=== PATIENT | female | born 1955 | race African-American/Black ===

== ENCOUNTER 2019-01-16 06:27 | Inpatient (IN) | payer BC ==
[~2019-01-16] VITALS: Ht 167.6 cm; Wt 114.5 kg
[2019-01-16] MEDS ORDERED: METHYLPREDNISOLONE SOD SUCC 125 MG/2 ML VIAL IV STA (06:39)
[2019-01-16] MEDS ORDERED: IPRATROPIUM/ALBUTEROL 0.5-3(2.5)MG/3ML NEB HHN ONE (06:45)
[2019-01-16] MEDS ORDERED: LEVOFLOXACIN 750MG PREMIX 150 ML IV ONE (06:45)
[2019-01-16] MEDS ORDERED: MAGNESIUM 2 G PREMIX 50 ML IV ONE (06:45)
[2019-01-16 07:06] LABS: BASOPHILS % 0.6 % (0.0-2.0); EOSINOPHILS % 6.6 % (0.0-5.0); HEMATOCRIT. 43.1 % (36.0-48.0); HEMOGLOBIN. 14.4 g/dL (12.0-16.0); LYMPHOCYTES % 27.9 % (20.0-50.0); MEAN CORPUSCULAR HEMOGLOBIN 30.3 pg (28.0-32.0); MEAN CORPUSCULAR VOLUME 90.4 fL (81.0-99.0); MEAN PLATELET VOLUME 7.9 fl (7.4-10.4); MONOCYTES % 10.1 % (2.0-8.0); NEUTROPHILS % 54.8 % (40.0-76.0); PLATELET 241 x1000/uL (130-400); RED BLOOD CELL COUNT 4.77 mill/uL (4.2-5.4); RED CELL DISTRIBUTION WIDTH 13.3 % (11.6-14.6)
[2019-01-16 07:15] LABS: CHLORIDE 112 mEq/L (98-107)
[2019-01-16 07:19] LABS: ETHANOL BLOOD < 10 mg/dL
[2019-01-16 07:22] LABS: D-DIMER 0.75 mg/L FEU (<0.50); PARTIAL THROMBOPLASTIN TIME 28.5 sec (23.4-31.0); PROTHROMBIN TIME 10.5 sec (9.1-11.1)
[2019-01-16 08:25] LABS: BG BASE EXCESS -3.9 mmol/L (-2.0-2.0); BG BILEVEL POS AIRWAY PRESSURE 15/5; BG DEOXYHEMOGLOBIN 0.5 % (0.0-5.0); BG HCO3 ACT 21.6 mmol/L (22.0-26.0); BG METHEMOGLOBIN 0.6 % (0.0-1.5); BG OXYGEN SATURATION 99.5 % (92.0-98.5); BG OXYHEMOGLOBIN 97.9 % (94.0-97.0); BG PCO2 40.7 mmHg (35.0-45.0); BG PH 7.342 (7.350-7.450); BG PO2 255.1 mmHg (75.0-100.0); BG SAMPLE SITE RIGHT RADIAL; BG TOTAL HEMOGLOBIN 14.8 g/dL (12.0-18.0); BG VENT MODE MASK - BIPAP; BG VENT RATE 16 set
[2019-01-16] MEDS ORDERED: LEVOFLOXACIN 500MG PREMIX 100 ML IV SCH (11:30)
[2019-01-16] MEDS ORDERED: MAGNESIUM/ALUMINUM HYDROXIDE/SIMETHICONE 30ML UDC PO PRN (11:30)
[2019-01-16] MEDS ORDERED: DOCUSATE SODIUM 100MG CAPSULE PO PRN (11:30)
[2019-01-16] MEDS ORDERED: ACETAMINOPHEN 325MG TABLET PO PRN (11:30)
[2019-01-16] MEDS ORDERED: IPRATROPIUM/ALBUTEROL 0.5-3(2.5)MG/3ML NEB INH PRN (11:30)
[2019-01-16] MEDS ORDERED: BUDESONIDE 0.5MG/2ML NEB HHN SCH (11:30)
[2019-01-16] MEDS ORDERED: METHYLPREDNISOLONE SOD SUCC 125 MG/2 ML VIAL IV SCH (11:30)
[2019-01-16 16:25] LABS: BG BASE EXCESS -1.8 mmol/L (-2.0-2.0); BG CARBOXYHEMOGLOBIN 0.9 % (0.5-1.5); BG DEOXYHEMOGLOBIN 5.4 % (0.0-5.0); BG HCO3 ACT 22.7 mmol/L (22.0-26.0); BG METHEMOGLOBIN 0.3 % (0.0-1.5); BG OXYGEN SATURATION 94.5 % (92.0-98.5); BG OXYHEMOGLOBIN 93.4 % (94.0-97.0); BG PH 7.394 (7.350-7.450); BG PO2 70.9 mmHg (75.0-100.0); BG SAMPLE SITE RIGHT RADIAL; BG TOTAL HEMOGLOBIN 15.3 g/dL (12.0-18.0); BG VENT MODE ROOM AIR
[2019-01-16 21:00] VITALS: BP 116/58
[2019-01-16] MEDS ORDERED: ALBUTEROL (0.083%) 2.5MG/3ML NEB HHN PRN (21:15)
[2019-01-16] MEDS: IPRATROPIUM/ALBUTEROL 0.5-3(2.5)MG/3ML NEB INH SCH ×2 (21:38→23:48)
[2019-01-16] MEDS: BUDESONIDE 0.5MG/2ML NEB HHN SCH (21:46)
[2019-01-16 22:00] VITALS: BP 116/58
[2019-01-16] MEDS ORDERED: LEVO125T PO (22:00)
[2019-01-16] MEDS ORDERED: SOTA80TA PO (22:00)
[2019-01-16] MEDS ORDERED: TEMA30CA PO (22:00)
[2019-01-16] MEDS: GUAIFENESIN 600MG ER TABLET PO SCH (22:32)
[2019-01-16] MEDS: METHYLPREDNISOLONE SOD SUCC 40 MG/ML VIAL IV SCH (22:32)
[2019-01-17] VITALS (12 sets, daily range): BP systolic 106–158; BP diastolic 60–92
[2019-01-17] MEDS: IPRATROPIUM/ALBUTEROL 0.5-3(2.5)MG/3ML NEB INH SCH ×5 (04:45→21:22)
[2019-01-17 05:52] LABS: BASOPHILS % 0.2 % (0.0-2.0); EOSINOPHILS % 0.1 % (0.0-5.0); HEMATOCRIT. 41.7 % (36.0-48.0); HEMOGLOBIN. 13.9 g/dL (12.0-16.0); LYMPHOCYTES % 10.6 % (20.0-50.0); MEAN CORPUSCULAR HEMOGLOBIN 30.3 pg (28.0-32.0); MEAN CORPUSCULAR VOLUME 90.7 fL (81.0-99.0); MEAN PLATELET VOLUME 8.3 fl (7.4-10.4); MONOCYTES % 2.3 % (2.0-8.0); NEUTROPHILS % 86.8 % (40.0-76.0); PLATELET 237 x1000/uL (130-400); RED CELL DISTRIBUTION WIDTH 13.5 % (11.6-14.6)
[2019-01-17] MEDS: METHYLPREDNISOLONE SOD SUCC 40 MG/ML VIAL IV SCH (06:32)
[2019-01-17 06:53] LABS: CHLORIDE 111 mEq/L (98-107)
[2019-01-17 07:17] LABS: LDL CHOLESTEROL 109 mg/dL (5-100)
[2019-01-17 07:18] LABS: HDL CHOLESTEROL 57 mg/dL (40-59); T4 FREE 1.24 ng/dL (0.76-1.46)
[2019-01-17] MEDS: OMEPRAZOLE 20MG CAPSULE EXTENDED RELEASE PO SCH (07:30)
[2019-01-17] MEDS: BUDESONIDE 0.5MG/2ML NEB HHN SCH ×2 (07:49→21:21)
[2019-01-17 09:23] LABS: BG BASE EXCESS -0.6 mmol/L (-2.0-2.0); BG CARBOXYHEMOGLOBIN 1.1 % (0.5-1.5); BG DEOXYHEMOGLOBIN 8.9 % (0.0-5.0); BG FRACTION INSPIRED OXYGEN 21; BG METHEMOGLOBIN 0.4 % (0.0-1.5); BG OXYHEMOGLOBIN 89.6 % (94.0-97.0); BG PH 7.435 (7.350-7.450); BG PO2 57.1 mmHg (75.0-100.0); BG SAMPLE SITE RIGHT RADIAL; BG TOTAL HEMOGLOBIN 14.8 g/dL (12.0-18.0); BG VENT MODE ROOM AIR
[2019-01-17] MEDS ORDERED: LIDOCAINE HCL/PF 1% 2ML VIAL ONE (10:06)
[2019-01-17] MEDS: GUAIFENESIN 200MG/10ML SUGAR FREE UDC PO PRN ×2 (10:12→15:44)
[2019-01-17] MEDS: GUAIFENESIN 600MG ER TABLET PO SCH ×2 (10:14→20:30)
[2019-01-17] MEDS: LEVOFLOXACIN 500MG PREMIX 100 ML IV SCH (10:21)
[2019-01-17] MEDS ORDERED: LEVOTHYROXINE SODIUM 125MCG TABLET PO SCH ×2 (11:15→13:00)
[2019-01-17] MEDS ORDERED: SOTALOL HCL 80MG TABLET PO SCH (11:15)
[2019-01-17] MEDS: IBUPROFEN 800MG TABLET PO PRN (11:53)
[2019-01-17] MEDS: LEVOTHYROXINE SODIUM 125MCG TABLET PO SCH (15:56)
[2019-01-17] MEDS: SOTALOL HCL 80MG TABLET PO SCH (20:30)
[2019-01-17] MEDS ORDERED: METHYLPREDNISOLONE SOD SUCC 40 MG/ML VIAL IV SCH (21:00)
[2019-01-18] VITALS (8 sets, daily range): BP systolic 127–144; BP diastolic 73–95
[2019-01-18] MEDS: IBUPROFEN 800MG TABLET PO PRN (00:13)
[2019-01-18] MEDS: IPRATROPIUM/ALBUTEROL 0.5-3(2.5)MG/3ML NEB INH SCH ×4 (00:20→11:37)
[2019-01-18] MEDS: BUDESONIDE 0.5MG/2ML NEB HHN SCH (08:41)
[2019-01-18] MEDS ORDERED: PREDNISONE 20MG TABLET PO SCH (09:00)
[2019-01-18] MEDS: GUAIFENESIN 200MG/10ML SUGAR FREE UDC PO PRN (09:29)
[2019-01-18] MEDS: LEVOTHYROXINE SODIUM 125MCG TABLET PO SCH (09:30)
[2019-01-18] MEDS: SOTALOL HCL 80MG TABLET PO SCH (09:30)
[2019-01-18] MEDS: GUAIFENESIN 600MG ER TABLET PO SCH (09:31)
[2019-01-18] MEDS: OMEPRAZOLE 20MG CAPSULE EXTENDED RELEASE PO SCH (09:31)
[2019-01-18] MEDS: LEVOFLOXACIN 500MG PREMIX 100 ML IV SCH (09:32)
[2019-01-18 09:53] LABS: BG BASE EXCESS 0.1 mmol/L (-2.0-2.0); BG CARBOXYHEMOGLOBIN 0.7 % (0.5-1.5); BG DEOXYHEMOGLOBIN 7.2 % (0.0-5.0); BG FRACTION INSPIRED OXYGEN 21; BG HCO3 ACT 23.7 mmol/L (22.0-26.0); BG METHEMOGLOBIN 0.2 % (0.0-1.5); BG OXYGEN SATURATION 92.7 % (92.0-98.5); BG OXYHEMOGLOBIN 91.9 % (94.0-97.0); BG PCO2 35.4 mmHg (35.0-45.0); BG PH 7.443 (7.350-7.450); BG PO2 64.7 mmHg (75.0-100.0); BG SAMPLE SITE RIGHT RADIAL; BG TOTAL HEMOGLOBIN 14.6 g/dL (12.0-18.0); BG VENT MODE ROOM AIR
[2019-01-18] MEDS ORDERED: LIDOCAINE HCL/PF 1% 2ML VIAL ONE (13:43)
[2019-01-22] MEDS ORDERED: PREDNISONE 20MG TABLET PO SCH (09:00)
[2019-01-26] MEDS ORDERED: PREDNISONE 20MG TABLET PO SCH (09:00)
[2019-01-30] MEDS ORDERED: PREDNISONE 10MG TABLET PO SCH (09:00)
== END 2019-01-18 13:15 | disposition home or self-care (01) | DRG 189 ==
LOC: ER 06:50 → 5EST 08:51 → EDBEDREQSVC 08:54 → EDBEDREQ 08:54 → ENRESERV 20:14
PROVIDERS: ADMIT Internal Medicine; ATTEND Internal Medicine
PROC: 5A09357 Assistance with Respiratory Ventilation, Less than 24 Consecutive Hours, Continuous Positive Airway Pressure (ICD-10-PCS; principal; 2019-01-16)
DX: J96.00 Acute respiratory failure, unspecified whether with hypoxia or hypercapnia (principal); J44.1 Chronic obstructive pulmonary disease with (acute) exacerbation; Z68.41 Body mass index [BMI] 40.0-44.9, adult; J44.0 Chronic obstructive pulmonary disease with (acute) lower respiratory infection; E66.01 Morbid (severe) obesity due to excess calories; J20.9 Acute bronchitis, unspecified; E03.9 Hypothyroidism, unspecified; I48.91 Unspecified atrial fibrillation; I65.21 Occlusion and stenosis of right carotid artery; F17.200 Nicotine dependence, unspecified, uncomplicated; Z88.5 Allergy status to narcotic agent; Z88.2 Allergy status to sulfonamides; Z86.73 Personal history of transient ischemic attack (TIA), and cerebral infarction without residual deficits; Z79.82 Long term (current) use of aspirin; Z71.6 Tobacco abuse counseling; Z71.3 Dietary counseling and surveillance; Z79.890 Hormone replacement therapy
CPT/HCPCS: 36415; 36600; 71045; 80061; 82375; 82805; 83605; 83880; 84439; 84443; 84481; 84484; 85379; 93005; 93880; 93970; 94640; 96365; 96366; 96368; 96375; 99291; J1956; J2920; J2930; J3475; J3490; J7050; J7512; J7620; J7626

== ENCOUNTER 2019-03-28 07:06 | Inpatient (IN) | payer BC ==
[~2019-03-28] VITALS: Ht 177.8 cm; Wt 107.8 kg
[~2019-03-28 07:06] MED LIST: LEVO125T PO; SOTA80TA PO; TEMA30CA PO
[2019-03-28] MEDS ORDERED: METHYLPREDNISOLONE SOD SUCC 125 MG/2 ML VIAL IV STA (07:43)
[2019-03-28] MEDS ORDERED: IPRATROPIUM BROMIDE (0.02%) 0.5MG/2.5ML NEB HHN STA (07:43)
[2019-03-28] MEDS ORDERED: MAGNESIUM 2 G PREMIX 50 ML IV ONE (07:45)
[2019-03-28] MEDS: ALBUTEROL (0.083%) 2.5MG/3ML NEB HHN SCH ×3 (08:05→09:07)
[2019-03-28 08:13] LABS: BASOPHILS % 1.1 % (0.0-2.0); CHLORIDE 111 mEq/L (98-107); EOSINOPHILS % 10.8 % (0.0-5.0); HEMATOCRIT. 43.8 % (36.0-48.0); HEMOGLOBIN. 14.7 g/dL (12.0-16.0); LYMPHOCYTES % 32.8 % (20.0-50.0); MEAN CORPUSCULAR HEMOGLOBIN 29.8 pg (28.0-32.0); MEAN CORPUSCULAR VOLUME 88.7 fL (81.0-99.0); NEUTROPHILS % 45.3 % (40.0-76.0); PLATELET 231 x1000/uL (130-400); RED BLOOD CELL COUNT 4.94 mill/uL (4.2-5.4); RED CELL DISTRIBUTION WIDTH 13.5 % (11.6-14.6)
[2019-03-28] MEDS ORDERED: ALBUTEROL (0.5%) 2.5MG/0.5ML NEB HHN PRN (10:30)
[2019-03-28] MEDS ORDERED: LIDOCAINE HCL/PF 1% 2ML VIAL ONE (16:50)
[2019-03-28 17:22] LABS: BG BASE EXCESS -2.2 mmol/L (-2.0-2.0); BG CARBOXYHEMOGLOBIN 0.3 % (0.5-1.5); BG DEOXYHEMOGLOBIN 4.7 % (0.0-5.0); BG FRACTION INSPIRED OXYGEN 28; BG HCO3 ACT 21.4 mmol/L (22.0-26.0); BG METHEMOGLOBIN 0.5 % (0.0-1.5); BG OXYGEN SATURATION 95.3 % (92.0-98.5); BG OXYHEMOGLOBIN 94.5 % (94.0-97.0); BG PCO2 33.6 mmHg (35.0-45.0); BG PH 7.421 (7.350-7.450); BG PO2 73.2 mmHg (75.0-100.0); BG SAMPLE SITE RIGHT BRACHIAL; BG TOTAL HEMOGLOBIN 15.4 g/dL (12.0-18.0); BG VENT MODE NASAL CANNULA
[2019-03-28 21:35] VITALS: BP 137/75
[2019-03-28 22:19] VITALS: BP 137/75
[2019-03-28] MEDS ORDERED: CLONIDINE 0.1MG TABLET PO PRN (22:21)
[2019-03-28] MEDS: METHYLPREDNISOLONE SOD SUCC 40 MG/ML VIAL IV SCH (23:16)
[2019-03-29] VITALS (19 sets, daily range): BP systolic 113–155; BP diastolic 32–113
[2019-03-29] MEDS: ALBUTEROL (0.083%) 2.5MG/3ML NEB HHN SCH ×6 (00:39→20:42)
[2019-03-29] MEDS: METHYLPREDNISOLONE SOD SUCC 40 MG/ML VIAL IV SCH ×3 (06:33→21:10)
[2019-03-29 07:05] LABS: BASOPHILS % 0.6 % (0.0-2.0); HEMATOCRIT. 41.6 % (36.0-48.0); HEMOGLOBIN. 13.7 g/dL (12.0-16.0); LYMPHOCYTES % 11.7 % (20.0-50.0); MEAN CORPUSCULAR HEMOGLOBIN 29.8 pg (28.0-32.0); MEAN CORPUSCULAR VOLUME 90.7 fL (81.0-99.0); MEAN PLATELET VOLUME 8.1 fl (7.4-10.4); MONOCYTES % 1.5 % (2.0-8.0); NEUTROPHILS % 86.2 % (40.0-76.0); PLATELET 223 x1000/uL (130-400); RED BLOOD CELL COUNT 4.59 mill/uL (4.2-5.4); RED CELL DISTRIBUTION WIDTH 13.6 % (11.6-14.6)
[2019-03-29 07:23] LABS: CHLORIDE 111 mEq/L (98-107)
[2019-03-29 07:43] LABS: CREATINE KINASE 38 IU/L (26-192); HDL CHOLESTEROL 56 mg/dL (40-59)
[2019-03-29 07:45] LABS: LDL CHOLESTEROL 125 mg/dL (5-100)
[2019-03-29] MEDS: APIXABAN 2.5 MG TABLET PO SCH ×2 (09:05→17:06)
[2019-03-29] MEDS ORDERED: LEVOTHYROXINE SODIUM 125MCG TABLET PO SCH (10:15)
[2019-03-29] MEDS ORDERED: POTASSIUM CHLORIDE 20MEQ TABLET SR PO NR (10:30)
[2019-03-29 11:56] LABS: T4 FREE 1.15 ng/dL (0.76-1.46)
[2019-03-29] MEDS: DILTIAZEM HCL 30MG TABLET PO SCH ×2 (13:39→17:06)
[2019-03-29] MEDS: TEMAZEPAM 15MG CAPSULE PO PRN (21:11)
[2019-03-30] VITALS (29 sets, daily range): BP systolic 116–218; BP diastolic 34–182
[2019-03-30] MEDS: DILTIAZEM HCL 30MG TABLET PO SCH ×3 (00:16→13:18)
[2019-03-30] MEDS: ALBUTEROL (0.083%) 2.5MG/3ML NEB HHN SCH ×4 (00:21→11:47)
[2019-03-30] MEDS: METHYLPREDNISOLONE SOD SUCC 40 MG/ML VIAL IV SCH ×3 (05:53→21:42)
[2019-03-30 06:36] LABS: BASOPHILS % 0.1 % (0.0-2.0); HEMATOCRIT. 41.6 % (36.0-48.0); HEMOGLOBIN. 13.5 g/dL (12.0-16.0); LYMPHOCYTES % 8.8 % (20.0-50.0); MEAN CORPUSCULAR HEMOGLOBIN 29.4 pg (28.0-32.0); MEAN CORPUSCULAR VOLUME 90.1 fL (81.0-99.0); MEAN PLATELET VOLUME 8.2 fl (7.4-10.4); MONOCYTES % 4.4 % (2.0-8.0); NEUTROPHILS % 86.7 % (40.0-76.0); PLATELET 229 x1000/uL (130-400); RED BLOOD CELL COUNT 4.61 mill/uL (4.2-5.4); RED CELL DISTRIBUTION WIDTH 13.7 % (11.6-14.6)
[2019-03-30] MEDS ORDERED: LEVOTHYROXINE SODIUM 125MCG TABLET PO SCH (06:50)
[2019-03-30 07:40] LABS: CHLORIDE 111 mEq/L (98-107)
[2019-03-30] MEDS: APIXABAN 2.5 MG TABLET PO SCH (08:05)
[2019-03-30] MEDS ORDERED: DILTIAZEM HCL 5MG/ML 5ML VIAL IV NR (15:00)
[2019-03-30] MEDS ORDERED: DILTIAZEM HCL 5MG/ML 5ML VIAL IV PRN (15:00)
[2019-03-30] MEDS ORDERED: ALBUTEROL (0.083%) 2.5MG/3ML NEB HHN PRN (15:15)
[2019-03-30] MEDS: DILTIAZEM HCL 60MG TABLET PO SCH (17:04)
[2019-03-30] MEDS: APIXABAN 5 MG TABLET PO SCH (17:05)
[2019-03-30] MEDS ORDERED: LORAZEPAM 0.5MG TABLET PO PRN (18:45)
[2019-03-30] MEDS: DEXT 5%/0.45% NACL 1000ML 1,000 ML IV SCH (19:00)
[2019-03-30] MEDS ORDERED: THEOPHYLLINE ANHYDROUS 80 MG/15 ML 120ML PO SCH (21:00)
[2019-03-30] MEDS: INSULIN LISPRO 100 UNITS/ML SUBCUT SCH (21:00)
[2019-03-30] MEDS ORDERED: DEXTROSE 50% WATER 50ML SYRINGE IV PRN (21:00)
[2019-03-30] MEDS: BLOOD SUGAR DIAGNOSTIC STRIP TEST SCH (21:02)
[2019-03-31] VITALS: BP 134/73
[2019-03-31] MEDS: TEMAZEPAM 15MG CAPSULE PO PRN (00:05)
[2019-03-31] MEDS: DILTIAZEM HCL 60MG TABLET PO SCH ×2 (00:05→06:17)
[2019-03-31 02:00] VITALS: BP 149/81
[2019-03-31 04:00] VITALS: BP 136/56
[2019-03-31 06:00] VITALS: BP 129/75
[2019-03-31] MEDS: BLOOD SUGAR DIAGNOSTIC STRIP TEST SCH (06:08)
[2019-03-31] MEDS: METHYLPREDNISOLONE SOD SUCC 40 MG/ML VIAL IV SCH (06:12)
[2019-03-31 06:39] LABS: BASOPHILS % 0.1 % (0.0-2.0); HEMATOCRIT. 39.8 % (36.0-48.0); HEMOGLOBIN. 13.3 g/dL (12.0-16.0); LYMPHOCYTES % 7.8 % (20.0-50.0); MEAN CORPUSCULAR HEMOGLOBIN 29.9 pg (28.0-32.0); MEAN CORPUSCULAR VOLUME 89.6 fL (81.0-99.0); MEAN PLATELET VOLUME 8.2 fl (7.4-10.4); MONOCYTES % 3.2 % (2.0-8.0); NEUTROPHILS % 88.9 % (40.0-76.0); PLATELET 235 x1000/uL (130-400); RED BLOOD CELL COUNT 4.45 mill/uL (4.2-5.4)
[2019-03-31 06:40] LABS: CHLORIDE 109 mEq/L (98-107)
[2019-03-31] MEDS ORDERED: LEVOTHYROXINE SODIUM 100MCG TABLET PO SCH (06:50)
[2019-03-31] MEDS: INSULIN LISPRO 100 UNITS/ML SUBCUT SCH (07:20)
[2019-03-31] MEDS: DEXT 5%/0.45% NACL 1000ML 1,000 ML IV SCH (08:20)
[2019-03-31] MEDS: APIXABAN 5 MG TABLET PO SCH (09:04)
[2019-03-31 09:45] VITALS: BP 121/51
== END 2019-03-31 10:15 | disposition home or self-care (01) | DRG 189 ==
LOC: ER 07:54 → 3WST 10:22 → ENRESERV 20:36 → 3WST 23:25
PROVIDERS: ADMIT Specialist; ATTEND Specialist
PROC: 5A09357 Assistance with Respiratory Ventilation, Less than 24 Consecutive Hours, Continuous Positive Airway Pressure (ICD-10-PCS; principal; 2019-03-28)
DX: J96.00 Acute respiratory failure, unspecified whether with hypoxia or hypercapnia (principal); J44.1 Chronic obstructive pulmonary disease with (acute) exacerbation; D68.59 Other primary thrombophilia; I48.0 Paroxysmal atrial fibrillation; E03.9 Hypothyroidism, unspecified; E66.9 Obesity, unspecified; G47.00 Insomnia, unspecified; I10 Essential (primary) hypertension; F41.9 Anxiety disorder, unspecified; I27.20 Pulmonary hypertension, unspecified; R51 Headache; J45.40 Moderate persistent asthma, uncomplicated; Z79.01 Long term (current) use of anticoagulants; Z79.890 Hormone replacement therapy; Z87.891 Personal history of nicotine dependence; Z79.899 Other long term (current) drug therapy; Z88.2 Allergy status to sulfonamides; Z88.5 Allergy status to narcotic agent
CPT/HCPCS: 36415; 36600; 71045; 80048; 80061; 82375; 82550; 82805; 82962; 83735; 83880; 84439; 84443; 84481; 84484; 85379; 93005; 93306; 93970; 94640; 94660; 96365; 96366; 96375; 99291; J2920; J2930; J3475; J3490; J7611

== ENCOUNTER 2019-05-19 21:54 | Emergency (ER) | payer BC ==
[~2019-05-19] VITALS: Ht 175.3 cm; Wt 115.0 kg
[~2019-05-19 21:54] MED LIST changes: -SOTA80TA PO
[2019-05-19 22:03] VITALS: BP 151/107
== END 2019-05-19 22:40 | disposition left against medical advice (07) ==
LOC: ER 21:54
DX: Z53.21 Procedure and treatment not carried out due to patient leaving prior to being seen by health care provider (principal); E03.9 Hypothyroidism, unspecified; I48.91 Unspecified atrial fibrillation; Z88.5 Allergy status to narcotic agent; Z88.6 Allergy status to analgesic agent; Z98.890 Other specified postprocedural states

== ENCOUNTER 2019-07-09 19:02 | Inpatient (IN) | payer BC ==
[~2019-07-09] VITALS: Ht 170.2 cm; Wt 126.6 kg
[2019-07-09] MEDS ORDERED: METHYLPREDNISOLONE SOD SUCC 125 MG/2 ML VIAL IV STA (19:08)
[2019-07-09] MEDS ORDERED: ALBUTEROL (0.083%) 2.5MG/3ML NEB HHN STA ×2 (19:08→22:15)
[2019-07-09] MEDS ORDERED: IPRATROPIUM BROMIDE (0.02%) 0.5MG/2.5ML NEB HHN STA (19:08)
[2019-07-09] MEDS ORDERED: METHYLPREDNISOLONE SOD SUCC 125 MG/2 ML VIAL ONE (19:10)
[2019-07-09] MEDS ORDERED: MAGNESIUM 2 G PREMIX 50 ML IV ONE ×2 (19:12→19:15)
[2019-07-09 19:23] LABS: BASOPHILS % 2.1 % (0.0-2.0); EOSINOPHILS % 3.6 % (0.0-5.0); HEMATOCRIT. 44.5 % (36.0-48.0); HEMOGLOBIN. 15.1 g/dL (12.0-16.0); MEAN CORPUSCULAR VOLUME 88.5 fL (81.0-99.0); MEAN PLATELET VOLUME 7.8 fl (7.4-10.4); MONOCYTES % 12.4 % (2.0-8.0); NEUTROPHILS % 45.9 % (40.0-76.0); PLATELET 264 x1000/uL (130-400); RED BLOOD CELL COUNT 5.03 mill/uL (4.2-5.4); RED CELL DISTRIBUTION WIDTH 13.4 % (11.6-14.6)
[2019-07-09 19:30] LABS: CHLORIDE 110 mEq/L (98-107)
[2019-07-09] MEDS ORDERED: CEFTRIAXONE 1 G PREMIX 50 ML IV ONE (20:45)
[2019-07-09] MEDS: VANCOMYCIN 1 G PREMIX 200 ML IV SCH ×3 (20:45→22:54)
[2019-07-09] MEDS ORDERED: AZITHROMYCIN 500 MG in DEXT 5% WATER 250 ML IV SCH (20:45)
[2019-07-09] MEDS ORDERED: LIDOCAINE HCL 1% 20ML VIAL (Pyxis) INJ INFIL ONE (21:00)
[2019-07-09 21:37] LABS: BG BASE EXCESS -3.9 mmol/L (-2.0-2.0); BG BILEVEL POS AIRWAY PRESSURE 16/5; BG CARBOXYHEMOGLOBIN 0.2 % (0.5-1.5); BG DEOXYHEMOGLOBIN 0.6 % (0.0-5.0); BG FRACTION INSPIRED OXYGEN 50; BG HCO3 ACT 17.7 mmol/L (22.0-26.0); BG METHEMOGLOBIN 0.4 % (0.0-1.5); BG OXYGEN SATURATION 99.4 % (92.0-98.5); BG OXYHEMOGLOBIN 98.8 % (94.0-97.0); BG PCO2 24.9 mmHg (35.0-45.0); BG PO2 271.2 mmHg (75.0-100.0); BG SAMPLE SITE RIGHT RADIAL; BG TOTAL HEMOGLOBIN 15.3 g/dL (12.0-18.0); BG VENT MODE MASK - BIPAP; BG VENT RATE 18 set
[2019-07-09] MEDS ORDERED: IBUP1CAP3 PO (23:54)
[2019-07-09] MEDS ORDERED: APIX5TAB PO (23:54)
[2019-07-09] MEDS ORDERED: DILT60TA35 PO (23:54)
[2019-07-09] MEDS ORDERED: NITR0.4T49 SL (23:54)
[2019-07-09] MEDS ORDERED: TEMA30CA5 PO (23:54)
[2019-07-10] VITALS (9 sets, daily range): BP systolic 111–142; BP diastolic 65–89
[2019-07-10] MEDS ORDERED: TEMAZEPAM 30 MG PO SCH (00:15)
[2019-07-10] MEDS ORDERED: MEDICATION NOT ON FORMULARY EA (Diltiazem HCl (Cardizem) 60 MG) PO SCH (00:15)
[2019-07-10] MEDS ORDERED: TEMAZEPAM 15MG CAPSULE PO SCH ×2 (01:00→02:00)
[2019-07-10] MEDS: PIPERACILLIN/TAZOBACTAM 3.375 G in DEXT 5% WATER 100 ML IV SCH ×4 (02:44→20:37)
[2019-07-10] MEDS: VANCOMYCIN 1 G PREMIX 200 ML IV SCH ×2 (03:29→15:16)
[2019-07-10] MEDS ORDERED: ALBUTEROL (0.083%) 2.5MG/3ML NEB ONE (03:37)
[2019-07-10] MEDS: ALBUTEROL (0.083%) 2.5MG/3ML NEB HHN SCH ×2 (03:40→09:32)
[2019-07-10] MEDS: LEVOTHYROXINE SODIUM 125MCG TABLET PO SCH (06:12)
[2019-07-10] MEDS: DILTIAZEM HCL 60MG TABLET PO SCH ×3 (06:12→20:37)
[2019-07-10 07:24] LABS: BASOPHILS % 0.2 % (0.0-2.0); EOSINOPHILS % 0.4 % (0.0-5.0); HEMATOCRIT. 41.4 % (36.0-48.0); HEMOGLOBIN. 14.1 g/dL (12.0-16.0); LYMPHOCYTES % 9.3 % (20.0-50.0); MEAN CORPUSCULAR HEMOGLOBIN 30.5 pg (28.0-32.0); MEAN CORPUSCULAR VOLUME 89.5 fL (81.0-99.0); MEAN PLATELET VOLUME 7.9 fl (7.4-10.4); NEUTROPHILS % 89.1 % (40.0-76.0); PLATELET 245 x1000/uL (130-400); RED BLOOD CELL COUNT 4.62 mill/uL (4.2-5.4); RED CELL DISTRIBUTION WIDTH 13.5 % (11.6-14.6)
[2019-07-10 07:49] LABS: CHLORIDE 109 mEq/L (98-107)
[2019-07-10] MEDS: APIXABAN 5 MG TABLET PO SCH ×2 (08:26→20:37)
[2019-07-10] MEDS ORDERED: MEDICATION NOT ON FORMULARY EA (Apixaban (Eliquis) 5 MG) PO SCH (09:00)
[2019-07-10] MEDS ORDERED: ACETAMINOPHEN 650MG/20.3ML UDC GT PRN (10:00)
[2019-07-10] MEDS ORDERED: ACETAMINOPHEN 325MG TABLET PO PRN (10:00)
[2019-07-10] MEDS ORDERED: ONDANSETRON HCL 4MG/2ML INJ IV PRN (10:00)
[2019-07-10] MEDS ORDERED: IPRATROPIUM/ALBUTEROL 0.5-3(2.5)MG/3ML NEB INH PRN (10:00)
[2019-07-10] MEDS ORDERED: ACETAMINOPHEN 650MG SUPP PR PRN (10:00)
[2019-07-10] MEDS: METHYLPREDNISOLONE SOD SUCC 125 MG/2 ML VIAL IV SCH ×3 (11:09→20:47)
[2019-07-10 12:03] LABS: BG BASE EXCESS -2.6 mmol/L (-2.0-2.0); BG BILEVEL POS AIRWAY PRESSURE 16/5; BG CARBOXYHEMOGLOBIN 0.3 % (0.5-1.5); BG DEOXYHEMOGLOBIN 1.3 % (0.0-5.0); BG FRACTION INSPIRED OXYGEN 40; BG HCO3 ACT 15.5 mmol/L (22.0-26.0); BG METHEMOGLOBIN 0.2 % (0.0-1.5); BG OXYGEN SATURATION 98.7 % (92.0-98.5); BG OXYHEMOGLOBIN 98.2 % (94.0-97.0); BG PCO2 15.8 mmHg (35.0-45.0); BG PH 7.609 (7.350-7.450); BG SAMPLE SITE RIGHT RADIAL; BG TOTAL HEMOGLOBIN 14.7 g/dL (12.0-18.0); BG VENT MODE MASK - BIPAP
[2019-07-10] MEDS ORDERED: LORAZEPAM 2MG/ML CPJ IV PRN (13:15)
[2019-07-10] MEDS: SODIUM CHLORIDE 0.9% INJ 3ML FLUSH IVF SCH ×2 (13:44→22:23)
[2019-07-10] MEDS: IPRATROPIUM/ALBUTEROL 0.5-3(2.5)MG/3ML NEB INH SCH ×2 (14:17→20:13)
[2019-07-10] MEDS: IBUPROFEN 400MG TABLET PO PRN (19:30)
[2019-07-10] MEDS: TEMAZEPAM 15MG CAPSULE PO SCH (20:37)
[2019-07-11] VITALS (11 sets, daily range): BP systolic 118–141; BP diastolic 48–86
[2019-07-11] MEDS: PIPERACILLIN/TAZOBACTAM 3.375 G in DEXT 5% WATER 100 ML IV SCH ×4 (01:21→21:07)
[2019-07-11] MEDS: IPRATROPIUM/ALBUTEROL 0.5-3(2.5)MG/3ML NEB INH SCH ×4 (01:24→20:27)
[2019-07-11] MEDS: METHYLPREDNISOLONE SOD SUCC 125 MG/2 ML VIAL IV SCH ×4 (03:28→21:10)
[2019-07-11] MEDS: VANCOMYCIN 1 G PREMIX 200 ML IV SCH ×2 (03:28→23:14)
[2019-07-11] MEDS: IBUPROFEN 400MG TABLET PO PRN ×2 (04:26→10:23)
[2019-07-11] MEDS: SODIUM CHLORIDE 0.9% INJ 3ML FLUSH IVF SCH ×3 (05:49→20:13)
[2019-07-11] MEDS: LEVOTHYROXINE SODIUM 125MCG TABLET PO SCH (07:54)
[2019-07-11] MEDS: APIXABAN 5 MG TABLET PO SCH ×2 (08:04→21:08)
[2019-07-11] MEDS: DILTIAZEM HCL 60MG TABLET PO SCH ×2 (08:05→21:09)
[2019-07-11 10:05] LABS: BG BASE EXCESS -3.2 mmol/L (-2.0-2.0); BG CARBOXYHEMOGLOBIN 0.1 % (0.5-1.5); BG DEOXYHEMOGLOBIN 2.9 % (0.0-5.0); BG FRACTION INSPIRED OXYGEN 30; BG HCO3 ACT 19.8 mmol/L (22.0-26.0); BG METHEMOGLOBIN 0.3 % (0.0-1.5); BG OXYGEN SATURATION 97.1 % (92.0-98.5); BG OXYHEMOGLOBIN 96.7 % (94.0-97.0); BG PCO2 30.5 mmHg (35.0-45.0); BG PH 7.431 (7.350-7.450); BG PO2 91.9 mmHg (75.0-100.0); BG SAMPLE SITE RIGHT RADIAL; BG TOTAL HEMOGLOBIN 14.7 g/dL (12.0-18.0); BG VENT MODE MASK - BIPAP; BG VENT RATE 20 set
[2019-07-11] MEDS ORDERED: LIDOCAINE HCL/PF 1% 2ML VIAL ONE (14:57)
[2019-07-11] MEDS ORDERED: VANCOMYCIN 1250MG in DEXTROSE 5% WATER 250ML IV SCH (15:00)
[2019-07-11] MEDS ORDERED: GUAIFENESIN-DM 200MG-20MG/10ML UDC PO PRN (18:00)
[2019-07-11] MEDS: IBUPROFEN 600MG TABLET PO PRN (18:47)
[2019-07-11] MEDS: TEMAZEPAM 15MG CAPSULE PO SCH (21:09)
[2019-07-11] MEDS ORDERED: HYDROMORPHONE HCL/PF 2MG/ML CPJ IV ONE (22:00)
[2019-07-11] MEDS: GUAIFENESIN/CODEINE 200-20MG/10ML UDC PO PRN (23:15)
[2019-07-12] VITALS (9 sets, daily range): BP systolic 110–139; BP diastolic 47–84
[2019-07-12] MEDS: IPRATROPIUM/ALBUTEROL 0.5-3(2.5)MG/3ML NEB INH SCH ×4 (02:06→20:10)
[2019-07-12] MEDS: METHYLPREDNISOLONE SOD SUCC 125 MG/2 ML VIAL IV SCH ×4 (03:02→21:02)
[2019-07-12] MEDS: PIPERACILLIN/TAZOBACTAM 3.375 G in DEXT 5% WATER 100 ML IV SCH ×4 (03:02→20:04)
[2019-07-12] MEDS: GUAIFENESIN/CODEINE 200-20MG/10ML UDC PO PRN ×3 (03:02→17:17)
[2019-07-12] MEDS: SODIUM CHLORIDE 0.9% INJ 3ML FLUSH IVF SCH ×3 (03:05→21:02)
[2019-07-12] MEDS: IBUPROFEN 400MG TABLET PO PRN ×3 (03:33→23:21)
[2019-07-12 06:45] LABS: CHLORIDE 111 mEq/L (98-107)
[2019-07-12] MEDS: APIXABAN 5 MG TABLET PO SCH ×2 (09:06→20:04)
[2019-07-12] MEDS: LEVOTHYROXINE SODIUM 125MCG TABLET PO SCH (09:06)
[2019-07-12] MEDS: VANCOMYCIN 1 G PREMIX 200 ML IV SCH ×3 (09:07→23:21)
[2019-07-12] MEDS: DILTIAZEM HCL 60MG TABLET PO SCH ×2 (09:12→20:02)
[2019-07-12] MEDS: IBUPROFEN 600MG TABLET PO PRN ×2 (10:47→17:17)
[2019-07-12] MEDS ORDERED: CYCLOBENZAPRINE 10MG TABLET PO PRN (18:30)
[2019-07-12] MEDS ORDERED: TEMA30CA PO (19:52)
[2019-07-12] MEDS: TEMAZEPAM 15MG CAPSULE PO SCH (20:02)
[2019-07-12] MEDS ORDERED: LORAZEPAM 2MG/ML CPJ IV PRN (22:30)
[2019-07-13] VITALS (12 sets, daily range): BP systolic 116–150; BP diastolic 55–86
[2019-07-13] MEDS: IPRATROPIUM/ALBUTEROL 0.5-3(2.5)MG/3ML NEB INH SCH ×4 (01:11→20:53)
[2019-07-13] MEDS: PIPERACILLIN/TAZOBACTAM 3.375 G in DEXT 5% WATER 100 ML IV SCH ×4 (02:11→20:59)
[2019-07-13] MEDS: METHYLPREDNISOLONE SOD SUCC 125 MG/2 ML VIAL IV SCH ×4 (03:09→21:04)
[2019-07-13] MEDS: IBUPROFEN 600MG TABLET PO PRN (04:40)
[2019-07-13] MEDS: SODIUM CHLORIDE 0.9% INJ 3ML FLUSH IVF SCH ×3 (05:43→21:04)
[2019-07-13 06:27] LABS: CHLORIDE 111 mEq/L (98-107)
[2019-07-13 06:39] LABS: VANCOMYCIN TROUGH 20.2 ug/mL (5.0-10.0)
[2019-07-13] MEDS: DILTIAZEM HCL 60MG TABLET PO SCH ×2 (08:41→21:04)
[2019-07-13] MEDS: APIXABAN 5 MG TABLET PO SCH ×2 (08:41→21:04)
[2019-07-13] MEDS: LEVOTHYROXINE SODIUM 125MCG TABLET PO SCH (08:41)
[2019-07-13] MEDS: VANCOMYCIN 1 G PREMIX 200 ML IV SCH ×2 (09:30→16:12)
[2019-07-13] MEDS ORDERED: LIDOCAINE HCL/PF 1% 2ML VIAL ONE (10:22)
[2019-07-13 12:39] LABS: BG BASE EXCESS -1.2 mmol/L (-2.0-2.0); BG CARBOXYHEMOGLOBIN 0.5 % (0.5-1.5); BG DEOXYHEMOGLOBIN 5.8 % (0.0-5.0); BG FRACTION INSPIRED OXYGEN 21; BG METHEMOGLOBIN 0.3 % (0.0-1.5); BG OXYGEN SATURATION 94.2 % (92.0-98.5); BG OXYHEMOGLOBIN 93.4 % (94.0-97.0); BG PCO2 32.5 mmHg (35.0-45.0); BG PH 7.448 (7.350-7.450); BG SAMPLE SITE RIGHT RADIAL; BG TOTAL HEMOGLOBIN 14.5 g/dL (12.0-18.0); BG VENT MODE ROOM AIR
[2019-07-13] MEDS: PROMETHAZINE/DEXTROMETHORPHAN 6.25-15MG/5ML BOTTLE 120ML PO PRN (14:14)
[2019-07-13] MEDS: TEMAZEPAM 15MG CAPSULE PO SCH (21:03)
[2019-07-14] VITALS (12 sets, daily range): BP systolic 120–152; BP diastolic 57–83
[2019-07-14] MEDS: VANCOMYCIN 1 G PREMIX 200 ML IV SCH (00:15)
[2019-07-14] MEDS: PIPERACILLIN/TAZOBACTAM 3.375 G in DEXT 5% WATER 100 ML IV SCH ×2 (02:21→08:26)
[2019-07-14] MEDS: IPRATROPIUM/ALBUTEROL 0.5-3(2.5)MG/3ML NEB INH SCH ×3 (02:44→14:09)
[2019-07-14] MEDS: METHYLPREDNISOLONE SOD SUCC 125 MG/2 ML VIAL IV SCH ×3 (04:59→16:54)
[2019-07-14] MEDS: SODIUM CHLORIDE 0.9% INJ 3ML FLUSH IVF SCH ×2 (05:00→13:28)
[2019-07-14] MEDS: PROMETHAZINE/DEXTROMETHORPHAN 6.25-15MG/5ML BOTTLE 120ML PO PRN (06:27)
[2019-07-14] MEDS: LEVOTHYROXINE SODIUM 125MCG TABLET PO SCH (08:26)
[2019-07-14] MEDS: APIXABAN 5 MG TABLET PO SCH (08:26)
[2019-07-14] MEDS: DILTIAZEM HCL 60MG TABLET PO SCH (08:26)
[2019-07-14] MEDS ORDERED: DIPHENOXYLATE/ATROPINE 2.5/0.025MG TABLET PO NR (15:30)
[2019-07-14] MEDS ORDERED: P50 MT (18:04)
[2019-07-14] MEDS ORDERED: ALBU90AE INH (18:04)
== END 2019-07-14 20:00 | disposition home or self-care (01) | DRG 189 ==
LOC: ER 19:02 → 5EST 20:40 → EDBEDREQ 20:50 → EDBEDREQTM 20:50 → ENRESERV 21:17
PROVIDERS: ADMIT Family Medicine; ATTEND Family Medicine
PROC: 5A09457 Assistance with Respiratory Ventilation, 24-96 Consecutive Hours, Continuous Positive Airway Pressure (ICD-10-PCS; principal; 2019-07-09)
PROC: 5A09357 Assistance with Respiratory Ventilation, Less than 24 Consecutive Hours, Continuous Positive Airway Pressure (ICD-10-PCS; 2019-07-12)
DX: J96.01 Acute respiratory failure with hypoxia (principal); J44.1 Chronic obstructive pulmonary disease with (acute) exacerbation; J44.0 Chronic obstructive pulmonary disease with (acute) lower respiratory infection; Z68.41 Body mass index [BMI] 40.0-44.9, adult; I48.2 Chronic atrial fibrillation; E03.9 Hypothyroidism, unspecified; J20.9 Acute bronchitis, unspecified; E66.9 Obesity, unspecified; G47.00 Insomnia, unspecified; F17.210 Nicotine dependence, cigarettes, uncomplicated; J45.909 Unspecified asthma, uncomplicated; I27.20 Pulmonary hypertension, unspecified; M62.838 Other muscle spasm; I11.9 Hypertensive heart disease without heart failure; I71.9 Aortic aneurysm of unspecified site, without rupture; E04.1 Nontoxic single thyroid nodule; R91.1 Solitary pulmonary nodule; Z79.01 Long term (current) use of anticoagulants; Z79.899 Other long term (current) drug therapy; Z88.2 Allergy status to sulfonamides; Z88.6 Allergy status to analgesic agent; Z88.8 Allergy status to other drugs, medicaments and biological substances
CPT/HCPCS: 36415; 36600; 71045; 71250; 80048; 80202; 82375; 82805; 83880; 84484; 93005; 93306; 94640; 94660; 96365; 96366; 96375; 99291; J0456; J0696; J2060; J2543; J2930; J3370; J3475; J3490; J7060; J7611; J7620

== ENCOUNTER 2020-04-23 06:45 | Emergency (ER) | payer BC ==
[~2020-04-23] VITALS: Ht 172.7 cm; Wt 110.0 kg
[~2020-04-23 06:45] MED LIST changes: +ALBU90AE INH; +APIX5TAB PO; +DILT60TA35 PO; +NITR0.4T49 SL; +P50 MT
[2020-04-23] MEDS ORDERED: DILTIAZEM HCL 5MG/ML 5ML VIAL IV ONE ×2 (06:59→07:30)
[2020-04-23] MEDS ORDERED: ETOMIDATE 2MG/ML 10ML VIAL IV ONE (07:01)
[2020-04-23] MEDS ORDERED: ASPIRIN 81MG TABLET PO ONE (07:30)
[2020-04-23 07:47] LABS: BASOPHILS % 1.2 % (0.0-2.0); EOSINOPHILS % 4.9 % (0.0-5.0); HEMATOCRIT. 46.7 % (36.0-48.0); HEMOGLOBIN. 15.8 g/dL (12.0-16.0); LYMPHOCYTES % 43.5 % (20.0-50.0); MEAN CORPUSCULAR VOLUME 88.5 fL (81.0-99.0); MEAN PLATELET VOLUME 8.4 fl (7.4-10.4); MONOCYTES % 11.8 % (2.0-8.0); NEUTROPHILS % 38.6 % (40.0-76.0); PLATELET 316 x1000/uL (130-400); RED BLOOD CELL COUNT 5.27 mill/uL (4.2-5.4); RED CELL DISTRIBUTION WIDTH 13.8 % (11.6-14.6)
[2020-04-23 07:56] LABS: CHLORIDE 112 mEq/L (98-107)
[2020-04-23 07:57] LABS: PARTIAL THROMBOPLASTIN TIME 28.6 sec (23.4-31.0); PROTHROMBIN TIME 10.6 sec (9.6-11.0)
[2020-04-23] MEDS: DILTIAZEM HCL 90MG TABLET PO ONE ×2 (08:25→08:45)
[2020-04-23] MEDS ORDERED: DOXYCYCLINE HYCLATE 100MG CAPSULE PO ONE (08:30)
[2020-04-23 08:55] VITALS: BP 125/73
== END 2020-04-23 08:55 | disposition home or self-care (01) ==
LOC: ER 06:45 → CANBEDREQ 09:15
DX: I48.91 Unspecified atrial fibrillation (principal); R07.89 Other chest pain; J44.9 Chronic obstructive pulmonary disease, unspecified; Z79.01 Long term (current) use of anticoagulants; Z88.2 Allergy status to sulfonamides
CPT/HCPCS: 36415; 71045; 80053; 83880; 84484; 85025; 85610; 85730; 86850; 86900; 86901; 93005; 99285; J3490; Z7610